=== PATIENT | female | born 1950 | race Caucasian/White ===

== ENCOUNTER → 2017-01-03 | Day surgery (SDC) | payer OTHER ==
[~2017-01-03] VITALS: Ht 154.9 cm; Wt 72.6 kg
[~2017-01-03] MED LIST: 0.9% Sodium Chloride 1,000 ML IV PRN; CHOL100045 PO; MULT-1018 PO; Sodium Chloride LOK Flush 10 mL Syringe IV PRN; fentaNYL-PF 50 mCg/mL 2 mL Inj IVPUSH PRN
[2017-01-03 10:06] VITALS: BP 119/63; PULSE 56; RESP 14; O2SAT 97
[2017-01-03 11:17] VITALS: BP 103/65; PULSE 61; O2SAT 94
[2017-01-03 11:28] VITALS: BP 98/57; PULSE 59; RESP 16; O2SAT 94
[2017-01-03 11:33] VITALS: BP 98/68; PULSE 62; RESP 16; O2SAT 98
--- NOTE | 2017-01-03 11:52 | ENDO ---
[address] [address] ENDOSCOPY PROCEDURE PATIENT: BILL LUBIN : 1950 MR#: [id number] ADMIT: 01/03/2017 JOB ID: [id number] DATE: 01/03/2017 PROCEDURE: Colonoscopy. INDICATION: Patient with a family history of colon cancer. Patient's ASA classification is two. Mallampati score is two. MEDICATIONS: Versed 4 mg, fentanyl 100 mcg. INSTRUMENT USED: PCF H 180 AL PREPARATION QUALITY: Good. PROCEDURE DETAILS: After informed consent was obtained, the patient was brought into the GI suite, where she was placed on oxygen via nasal cannula and monitored with continuous pulse oximeter, telemetry, and blood pressure monitoring. A time-out was performed, then she was placed in the left lateral decubitus position and medications were administered for sedation. Digital rectal exam was performed, which was unremarkable. The colonoscope was then inserted into the rectum and advanced under direct visualization to the cecum, which was identified by the presence of the ileocecal valve and appendiceal orifice. Once the cecum was reached, the colonoscope was withdrawn back into the rectum as the mucosa and lumen were examined. In the rectum, retroflexion was performed. Following retroflexion, the remaining air in the rectum was suctioned and the procedure was completed. FINDINGS: 1. In the proximal transverse colon there was an approximately 6-7 mm flat polyp that was lifted using normal saline and then removed with a hot snare. 2. Scattered diverticula were seen throughout the left side of the colon. 3. In the distal rectum, there was an approximately 4 mm sessile polyp that was removed with a hot snare. IMPRESSION: 1. Transverse colon polyp. 2. Left-sided diverticulosis. 3. Rectal polyp. RECOMMENDATIONS: 1. Avoid NSAIDs and anticoagulants for 72 hours. 2. Fiber rich diet. 3. Repeat colonoscopy in five years. COMPLICATIONS: None. ESTIMATED BLOOD LOSS: Zero.
--- NOTE | 2017-01-07 17:02 | PATH ---
SURGICAL PATHOLOGY Attending Physician:Prabha Hernandez CASE STATUS: Signed Out PATIENT NAME: BILL LUBIN PID: [id number] : 1950 DATE COLLECTED:01/03/2017 21:55 SPECIMEN: 1: Colon, Polyp 2: Rectum, Biopsy CLINICAL HISTORY: 1). TRANSVERSE POLYP X1 2). RECTAL POLYP X1 FINAL DIAGNOSIS: 1. Transverse Polyp x1: Sessile serrated adenoma. 2. Rectal Polyp x1, Biopsy: Tubular adenoma in 1 of 2 fragments. ICD10: D12.6 NOTE: As part of routine software quality assurance specialist, part 1 of the case was also reviewed with Dr. Connolly who agrees with the above interpretation. GROSS DESCRIPTION: Received two formalin-filled containers, each labeled with the patient' s name. 1. Received in formalin, labeled with the patient' s name and "trans", is one fragment of herrera, soft tissue measuring 0.5 x 0.3 x 0.2 cm. The fragment is totally submitted in cassette 1A. 2. Received in formalin, labeled with the patient' s name and "rectal", are two fragments of herrera, soft tissue ranging from 0.1 x 0.1 x 0.1 cm to 0.2 x 0.1 x 0.1 cm. The fragments are totally submitted in cassette 2A. ([id number]) ICD-9 CODES: CPT CODES: 1: 04275 2: 71854 Electronically Signed Out Joseph Medrano MD [facility] [address], [place] [address] Technical component performed at [facility], [facility] [address], [place], [address]
== END | disposition home or self-care (01) ==
LOC: END 01:32
PROVIDERS: ATTEND Internal Medicine Gastroenterology
DX: Z12.11 Encounter for screening for malignant neoplasm of colon (principal); D12.3 Benign neoplasm of transverse colon; D12.8 Benign neoplasm of rectum; K57.30 Diverticulosis of large intestine without perforation or abscess without bleeding; Z80.0 Family history of malignant neoplasm of digestive organs
CPT/HCPCS: 45381; 45385; 99153; G0500; J2250; J3010; J7030